=== PATIENT | female | born 1940 | race Two or more races ===

== ENCOUNTER → 2017-05-03 | Outpatient (CLI) | payer MEDICARE ==
--- NOTE | 2017-05-03 11:22 | US ---
EXAMINATION TYPE: US kidneys/renal and bladder DATE OF EXAM: 05/03/2017 COMPARISON: NONE CLINICAL HISTORY: 76-year-old female R31.9 Hematuria. Left flank pain on and off TECHNIQUE: Multiple sonographic images of the kidneys and bladder are obtained. FINDINGS: Right Kidney: 9.7 x 3.5 x 4.5 cm without hydronephrosis. Exophytic cyst visualized medially measuri ng 1.6 x 1.4 x 1.5 cm. Left Kidney: 8.7 x 4.4 x 3.8 cm, somewhat small. No hydronephrosis. Underdistention of the bladder limits its evaluation. The right ureteral jet is not seen during the c ourse of the exam. IMPRESSION: 1. No hydronephrosis. Exophytic 1.6 cm cyst on the right. 2. Underdistention of the bladder limits its evaluation.
== END | disposition home or self-care (01) ==
LOC: RADUSWWP 09:48
PROVIDERS: ATTEND Family Medicine
DX: N28.1 Cyst of kidney, acquired (principal); R31.9 Hematuria, unspecified
CPT/HCPCS: 76770